=== PATIENT | male | born 2000 | race Caucasian/White ===

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

== ENCOUNTER 2025-05-18 13:02 | Emergency (ER) | payer OTHER | END 2025-05-18 15:04 | disposition home or self-care (01) | LOC: MW.ED 13:02 | DX: F41.9 Anxiety disorder, unspecified (principal); Z75.3 Unavailability and inaccessibility of health-care facilities | CPT/HCPCS: 93005; 93010; 99283; 99284 ==